=== PATIENT | male | born 1995 | race Caucasian/White ===

== ENCOUNTER 2018-03-15 06:08 | Emergency (ER) | payer SELFPAY ==
[~2018-03-15] VITALS: Ht 172.7 cm; Wt 65.8 kg
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
--- NOTE | 2018-03-15 06:08 | NUR ---
PT BIB [facility] TO ER BED 8
[2018-03-15 06:10] VITALS: BP 136/75
[2018-03-15 06:38] VITALS: BP 128/72
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
== END 2018-03-15 06:38 | disposition home or self-care (01) ==
LOC: MED 06:08
DX: Z02.89 Encounter for other administrative examinations (principal); S50.02XA Contusion of left elbow, initial encounter; V49.60XA Unspecified car occupant injured in collision with unspecified motor vehicles in traffic accident, initial encounter; Y93.89 Activity, other specified; Y92.488 Other paved roadways as the place of occurrence of the external cause; Y99.8 Other external cause status
CPT/HCPCS: 73080; 99284